=== PATIENT | female | born 1970 | race Caucasian/White ===

== ENCOUNTER 2017-06-13 07:37 | Emergency (ER) | payer OTHER ==
[~2017-06-13 07:37] MED LIST: CIPR500T4 PO; CLOR7.5T3 PO; CYCL-36 PO; ESTR1TAB12 PO; FIORTAB4 PO; HYDR-3533 PO; HYDR-3534 PO; HYDR-3535 PO; IBUP800T23 PO; LISI-363 PO; MOBI7.5T PO; NORC10TA2 PO; PHEN12.5 PR; REST15CA PO; ULTR50TA PO
[2017-06-13 07:49] VITALS: BP 124/75; PULSE 101; RESP 16; TEMP 98.1; O2SAT 98
[2017-06-13 09:12] VITALS: BP 130/82; PULSE 95; RESP 18; O2SAT 98
[2017-06-13] MEDS ORDERED: ZOFR4TAB PO (09:12)
[2017-06-13] MEDS ORDERED: BUTA1CAP PO (09:12)
[2017-06-13] MEDS ORDERED: LISI-515 PO (09:12)
[2017-06-13] MEDS ORDERED: ESTR1TAB PO (09:12)
[2017-06-13] MEDS ORDERED: SERT-132 PO (09:12)
[2017-06-13] MEDS ORDERED: diphenhydrAMINE HCL 50 MG/ML VIAL IVP ONE (09:15)
[2017-06-13] MEDS ORDERED: SODIUM CHLORIDE 0.9% FLUSH 10 ML FLUSH IVF PRN (09:15)
[2017-06-13] MEDS ORDERED: PROCHLORPERAZINE INJ 10 MG/2 ML VIAL IVP ONE (09:15)
[2017-06-13] MEDS ORDERED: SODIUM CHLOR 0.9% 1000 ML INJ 1,000 ML IV ONE (09:15)
[2017-06-13] MEDS ORDERED: KETOROLAC TROMETHAMINE 30 MG/ML (IVP) VIAL IVP ONE (09:15)
--- NOTE | 2017-06-13 10:10 | PD ---
HPI Chief Complaint: Headache Time Seen by Provider: 09:06 Travel History International Travel<30 days: No Contact w/Intl Traveler<30days: No Traveled to known affect area: No History of Present Illness HPI Is a 47-year-old woman presents to the emergency complaining of severe migraines. She has a history of severe migraines. Symptoms started about 11 PM last night. Are similar to her previous migraines. She tried her Fioricet and Zofran which did not help. She has some vision changes in her right eye which is typical for her migraines. Some nausea vomiting. No other recent illness or injury. No other complaints. History Past Medical History Narrative Medical Migraines : 3 Para: 2 Social History Alcohol Use: Yes (OCCASSIONALLY) Tobacco Use: No (quit 4 years ago) Allergies-Medications (Allergen,Severity, Reaction): Coded Allergies: acetaminophen (Unverified Allergy, Severe, 06/13/17) butorphanol (Unverified Allergy, Severe, SINUS INFECTIONS, 06/13/17) codeine (Unverified Allergy, Severe, 06/13/17) sumatriptan (Unverified Allergy, Severe, 06/13/17) zolmitriptan (Unverified Allergy, Severe, 06/13/17) methylprednisolone (Unverified Adverse Reaction, Severe, made mean and extreme hot, 06/13/17) Uncoded Allergies: MAXALT (Allergy, Unknown, 06/08/15) Reported Meds & Prescriptions Reported Meds & Active Scripts Active Reported Zofran (Ondansetron HCl) 4 Mg Tab 4 Mg PO Q6HR PRN Fioricet (Tcvolekqdr-Nymetukxngwfy-Wpowhunq) 50-300-40 Mg Cap 1 Cap PO Q4H PRN Sertraline (Sertraline HCl) 50 Mg Tab 50 Mg PO DAILY Estradiol 1 Mg Tab 1 Mg PO DAILY Lisinopril 20 Mg Tab 20 Mg PO DAILY Review of Systems Except as stated in HPI: all other systems reviewed are Neg Physical Exam Narrative GENERAL: 47-year-old woman, appears uncomfortable, photophobic. SKIN: Focused skin assessment warm/dry. HEAD: Atraumatic. Normocephalic. EYES: Pupils equal and round. No scleral icterus. No injection or drainage. ENT: No nasal bleeding or discharge. Mucous membranes pink and moist. NECK: Trachea midline. No JVD. CARDIOVASCULAR: Regular rate and rhythm. No murmur appreciated. RESPIRATORY: No accessory muscle use. Clear to auscultation. Breath sounds equal bilaterally. GASTROINTESTINAL: Abdomen soft, non-tender, nondistended. Hepatic and splenic margins not palpable. MUSCULOSKELETAL: No obvious deformities. No edema peer NEUROLOGICAL: Awake and alert. No obvious cranial nerve deficits. Motor grossly within normal limits. Normal speech. Data Data Last Documented VS Vital Signs Date Time Temp Pulse Resp B/P (MAP) Pulse Ox O2 Delivery O2 Flow Rate FiO2 06/13/17 09:12 95 18 130/82 (98) 98 Room Air 06/13/17 07:49 98.1 Orders Orders Iv Access Insert/Monitor (06/13/17 09:15) Sodium Chloride 0.9% Flush (Ns Flush) (06/13/17 09:15) Ketorolac Inj (Toradol Inj) (06/13/17 09:15) Prochlorperazine Inj (Compazine Inj) (06/13/17 09:15) Diphenhydramine Inj (Benadryl Inj) (06/13/17 09:15) Sodium Chlor 0.9% 1000 Ml Inj (Ns 1000 M (06/13/17 09:15) MDM Medical Decision Making Medical Screen Exam Complete: Yes Emergency Medical Condition: Yes Differential Diagnosis Migraine, headache, tumor, ICH, other Narrative Course Medical decision making 47-year-old woman with her typical migraine headache. We will give IV fluids, Toradol and Compazine, reassess. Wally Durbin MD Jun 13, 2017 10:10
--- NOTE | 2017-06-13 10:18 | PD ---
Physical Exam Time Seen by Provider: 10:[address] Durbin's note for initial history and physical. Patient reports improvement in her headache. Rates headache /10, down from an 810. Data Data Last Documented VS Vital Signs Date Time Temp Pulse Resp B/P (MAP) Pulse Ox O2 Delivery O2 Flow Rate FiO2 06/13/17 09:12 95 18 130/82 (98) 98 Room Air 06/13/17 07:49 98.1 Orders Orders Iv Access Insert/Monitor (06/13/17 09:15) Sodium Chloride 0.9% Flush (Ns Flush) (06/13/17 09:15) Ketorolac Inj (Toradol Inj) (06/13/17 09:15) Prochlorperazine Inj (Compazine Inj) (06/13/17 09:15) Diphenhydramine Inj (Benadryl Inj) (06/13/17 09:15) Sodium Chlor 0.9% 1000 Ml Inj (Ns 1000 M (06/13/17 09:15) MDM Supervised Visit with RONAL: Yes Narrative Course Patient states her headache has decreased. She states she has medications at home that she can continue to take for her headaches. Instructed patient to follow-up with neurologist. Instructed patient to follow up with primary care provider. Patient verbalizes understanding and agreement with treatment plan. Patient is medically cleared and stable for discharge. Discussed reasons to return to the emergency department. Patient agrees with treatment plan. The patients vital signs are stable and the patient is stable for outpatient follow- up and treatment. Patient discharged home, stable and in no acute distress. Diagnosis Primary Impression: Migraine headache Qualified Codes: G43.909 - Migraine, unspecified, not intractable, without status migrainosus Referrals: Neurologist Primary Care Physician Patient Instructions: General Instructions, Migraine Headache (ED) Additional Instruction: Ibuprofen or Tylenol as directed and as needed to reduce headache Get plenty of rest: do not over sleep Rest and relax in a dark, quiet room as needed Place an ice pack on the back of her neck to reduce head pain as needed Keep a headache diary of what triggers her headaches and what treatment is most effective Avoid identifiable triggers Avoid smoking, alcohol and caffeine consumption Reduce stress Follow-up with primary care provider within 1-2 days Follow-up with neurology Return immediately to the emergency department with worsening symptoms Med/Other Pt SpecificInfo: No Change to Meds, No Meds Exist/No RX given Disposition: 01 DISCHARGE HOME Condition: Stable Venessa Reynolds Jun 13, 2017 10:18
== END 2017-06-13 10:32 | disposition home or self-care (01) ==
LOC: NEPD 07:37
DX: G43.909 Migraine, unspecified, not intractable, without status migrainosus (principal)
CPT/HCPCS: 96361; 96374; 96375; 99284; J0780; J1200; J1885; J7030

== ENCOUNTER 2017-09-10 10:20 | Emergency (ER) | payer OTHER ==
[~2017-09-10] VITALS: Ht 160 cm; Wt 70.0 kg
[~2017-09-10 10:20] MED LIST changes: +BUTA1CAP PO; -CIPR500T4 PO; -CLOR7.5T3 PO; -CYCL-36 PO; +ESTR1TAB PO; -ESTR1TAB12 PO; -FIORTAB4 PO; -HYDR-3533 PO; -HYDR-3534 PO; -HYDR-3535 PO; -IBUP800T23 PO; -LISI-363 PO; +LISI-515 PO; -MOBI7.5T PO; -NORC10TA2 PO; -PHEN12.5 PR; -REST15CA PO; +SERT-132 PO; -ULTR50TA PO; +ZOFR4TAB PO
[2017-09-10 10:24] VITALS: BP 137/64; PULSE 119; RESP 20; TEMP 98; O2SAT 98
[2017-09-10] MEDS ORDERED: SODIUM CHLOR 0.9% 1000 ML INJ 1,000 ML IV ONE (10:34)
[2017-09-10] MEDS ORDERED: diphenhydrAMINE HCL 50 MG/ML VIAL IVP ONE (10:45)
[2017-09-10] MEDS ORDERED: KETOROLAC TROMETHAMINE 30 MG/ML (IVP) VIAL IVP ONE (10:45)
[2017-09-10] MEDS ORDERED: PROCHLORPERAZINE INJ 10 MG/2 ML VIAL IVP ONE (10:45)
[2017-09-10] MEDS ORDERED: SODIUM CHLORIDE 0.9% FLUSH 10 ML FLUSH IVF PRN (10:45)
--- NOTE | 2017-09-10 10:48 | PD ---
HPI Chief Complaint: Headache Time Seen by Provider: 10:33 Travel History International Travel<30 days: No Contact w/Intl Traveler<30days: No Traveled to known affect area: No History of Present Illness HPI 47 YO F with PMH of severe migraines presents to the ED for evaluation of migraine headache. Onset ~2AM. Accompanied by N/V, right sided eye pain, photophobia and visual disturbance. These symptoms are typical for her migraines historically. She denies fevers, cold or flu symptoms, facial droop, difficulties with word finding, unilateral weakness. She treated with Fioricet, ibuprofen, Phenergan suppository around 4 AM with no improvement of symptoms. PFSH Past Medical History Anxiety: Yes Cancer: No Cardiovascular Problems: Yes (HTN) Chest Pain: No Diabetes: No Diminished Hearing: No Endocrine: No Genitourinary: No Headaches: Yes Hepatitis: No Hiatal Hernia: No Hypertension: Yes Immune Disorder: No Kidney Stones: No Musculoskeletal: No Neurologic: Yes (migraine headaches) Psychiatric: Yes (ANXIETY) Reproductive: Yes (ENDOMETRIOSIS HX) Respiratory: No Migraines: Yes Renal Failure: No Seizures: No Thyroid Disease: No ?: Not : 3 Para: 2 Miscarriage: 1 Ovarian Cysts: Yes Tubal Ligation: Yes Past Surgical History Abdominal Surgery: Yes AICD: No Cardiac Surgery: No Gynecologic Surgery: Yes (MULTI 'SCOPIES (ENDOMETROSIS), TUBAL LIG., TVH) Hysterectomy: Yes Joint Replacement: No Pacemaker: No Thoracic Surgery: No Other Surgery: Yes Social History Alcohol Use: Yes (OCCASSIONALLY) Tobacco Use: No (quit 4 years ago) Substance Use: No Allergies-Medications (Allergen,Severity, Reaction): Coded Allergies: acetaminophen (Unverified Allergy, Severe, 09/10/17) butorphanol (Unverified Allergy, Severe, SINUS INFECTIONS, 09/10/17) codeine (Unverified Allergy, Severe, 09/10/17) sumatriptan (Unverified Allergy, Severe, 09/10/17) zolmitriptan (Unverified Allergy, Severe, 09/10/17) methylprednisolone (Unverified Adverse Reaction, Severe, made mean and extreme hot, 09/10/17) Uncoded Allergies: MAXALT (Allergy, Unknown, 06/08/15) Reported Meds & Prescriptions Reported Meds & Active Scripts Active Reported Zofran (Ondansetron HCl) 4 Mg Tab 4 Mg PO Q6HR PRN Fioricet (Fwdfrhijgu-Vqfpinvvbuaxz-Wmreaodq) 50-300-40 Mg Cap 1 Cap PO Q4H PRN Sertraline (Sertraline HCl) 50 Mg Tab 50 Mg PO DAILY Estradiol 1 Mg Tab 1 Mg PO DAILY Lisinopril 20 Mg Tab 20 Mg PO DAILY Review of Systems Except as stated in HPI: all other systems reviewed are Neg Physical Exam Narrative GENERAL: Well-nourished, well-developed white female no acute distress. SKIN: Focused skin assessment warm/dry. HEAD: Normocephalic. EYES: No scleral icterus. No injection or drainage. NECK: Supple, trachea midline. No JVD or lymphadenopathy. CARDIOVASCULAR: Regular rate and rhythm without murmurs, gallops, or rubs. RESPIRATORY: Breath sounds equal bilaterally. No accessory muscle use. GASTROINTESTINAL: Abdomen soft, non-tender, nondistended. MUSCULOSKELETAL: No cyanosis, or edema. NEUROLOGICAL: Awake and alert. Cranial nerves II through XII intact. Motor and sensory grossly within normal limits. Five out of 5 muscle strength in all muscle groups. Normal speech. BACK: Nontender without obvious deformity. No CVA tenderness. Data Data Last Documented VS Vital Signs Date Time Temp Pulse Resp B/P (MAP) Pulse Ox O2 Delivery O2 Flow Rate FiO2 09/10/17 15:15 09/10/17 13:04 85 20 09/10/17 11:12 99 09/10/17 10:24 98.0 Orders Orders Ecg Monitoring (09/10/17 10:34) Iv Access Insert/Monitor (09/10/17 10:34) Oximetry (09/10/17 10:34) Sodium Chloride 0.9% Flush (Ns Flush) (09/10/17 10:45) Ketorolac Inj (Toradol Inj) (09/10/17 10:45) Prochlorperazine Inj (Compazine Inj) (09/10/17 10:45) Diphenhydramine Inj (Benadryl Inj) (09/10/17 10:45) Sodium Chlor 0.9% 1000 Ml Inj (Ns 1000 M (09/10/17 10:34) Morphine Inj (Morphine Inj) (09/10/17 12:30) Sodium Chlorid 0.9% 500 Ml Inj (Ns 500 M (09/10/17 12:30) Magnesium Sulfate 1 Gm Premix (Magnesium (09/10/17 13:00) Ed Discharge Order (09/10/17 14:51) [facility] Medical Decision Making Medical Screen Exam Complete: Yes Emergency Medical Condition: Yes Differential Diagnosis Cephalgia versus migraine versus versus status migrainous versus ICH versus other Narrative Course 47 YO F with PMH of severe migraines presents to the ED for evaluation of migraine headache. Onset ~2AM. Accompanied by N/V, right sided eye pain, photophobia and visual disturbance. These symptoms are typical for her migraines historically. Patient is tachycardic on arrival. This resolves during the course of treatment. No focal neuro deficits on exam. IV was established. Patient was administered 1 L normal saline, 50 mg Benadryl, 10 mg Compazine, 30 mg Toradol IV. On recheck patient reports improvement without resolution of her symptoms. She is administered other half liter normal saline , 2 mg morphine, 100 mL's magnesium. On recheck patient states her symptoms have resolved. Plan to discharge with follow-up with her primary care provider. Dr. Woodall discussed reasons to return to the ED with the patient. Please see her note for disposition. Ellie De La Cruz Sep 10, 2017 10:48
[2017-09-10 11:12] VITALS: O2SAT 99
[2017-09-10] MEDS ORDERED: MORPHINE SULFATE 4 MG/ML INJ IV PUSH ONE (12:30)
[2017-09-10] MEDS ORDERED: SODIUM CHLORID 0.9% 500 ML INJ 500 ML IV ONE (12:30)
--- NOTE | 2017-09-10 12:49 | PD ---
Physical Exam Date Seen by Provider: Sep 10, 2017 Data Data Last Documented VS Vital Signs Date Time Temp Pulse Resp B/P (MAP) Pulse Ox O2 Delivery O2 Flow Rate FiO2 09/10/17 13:04 85 20 128/60 (82) 09/10/17 11:12 99 09/10/17 10:24 98.0 Orders Orders Ecg Monitoring (09/10/17 10:34) Iv Access Insert/Monitor (09/10/17 10:34) Oximetry (09/10/17 10:34) Sodium Chloride 0.9% Flush (Ns Flush) (09/10/17 10:45) Ketorolac Inj (Toradol Inj) (09/10/17 10:45) Prochlorperazine Inj (Compazine Inj) (09/10/17 10:45) Diphenhydramine Inj (Benadryl Inj) (09/10/17 10:45) Sodium Chlor 0.9% 1000 Ml Inj (Ns 1000 M (09/10/17 10:34) Morphine Inj (Morphine Inj) (09/10/17 12:30) Sodium Chlorid 0.9% 500 Ml Inj (Ns 500 M (09/10/17 12:30) Magnesium Sulfate 1 Gm Premix (Magnesium (09/10/17 13:00) MDM Medical Record Reviewed: Yes Supervised Visit with RONAL: Yes Narrative Course I, Dr. Woodall, have reviewed the advance practice practitioner's documentation and am in agreement, met with the patient face to face, made the diagnosis, and the medical decision making was done by me. *My assessment and Findings: Patient is a 47-year-old female with history of migraines, presents the emergency room with complaints of a typical migraine headache. Patient reports that around 2 AM, she began to have a right-sided frontal headache with associated nausea vomiting and photophobia. Patient reports that she does take Fioricet for her headaches as well as ibuprofen, reports no relief with these medications this morning. Patient reports that she is tried other migraine medications but does not tolerate them well, reports that when she gets this bad , she needs to come to the emergency room for the migraine cocktail. Patient has no neurological deficits on exam, she was given Toradol as well as Compazine as well as Benadryl and IV fluids, patient with minimal relief of symptoms after this medication was given, IV magnesium was also added. Patient does not require any lab work or imaging studies as this is her typical migraine headache and patient does have a benign exam. Patient reevaluated, patient was feeling much better after she is given the IV magnesium and IV fluids as well as the migraine cocktail. Patient was instructed to follow-up with her primary care doctor as well as a neurologist, she will return to the emergency room as needed. Patient thankful for care. Diagnosis Primary Impression: Cephalgia Qualified Codes: R51 - Headache Referrals: José Miguel Cleary MD Patient Instructions: General Instructions, Narcotic given in the ED Additional Instruction: Please follow-up with your neurologist as soon as possible Please follow-up with your primary care doctor Return to the emergency room as needed Disposition: 01 DISCHARGE HOME Condition: Stable Tena Woodall DO Sep 10, 2017 12:49
[2017-09-10] MEDS: MAGNESIUM SULFATE 1 GM PREMIX 100 ML IV SCH ×2 (12:57→14:08)
[2017-09-10 13:04] VITALS: BP 128/60; PULSE 85; RESP 20
== END 2017-09-10 15:15 | disposition home or self-care (01) ==
LOC: NEPD 10:20
DX: G43.909 Migraine, unspecified, not intractable, without status migrainosus (principal); I10 Essential (primary) hypertension
CPT/HCPCS: 96361; 96365; 96375; 99284; J0780; J1200; J1885; J2270; J3475; J7030; J7040